=== PATIENT | female | born 1965 ===

== ENCOUNTER 2016-12-09 11:21 | Day surgery (SDC) | payer OTHER ==
[~2016-12-09 11:21] MED LIST: BACITRACIN 50,000 UNITS/10 ML SYR IRR ONE; BUPIVACAINE 0.5% 30 ML SDV ONE; CHLORHEXIDINE GLUC HIBICLENS 118 ML BTL TP ONE; DEXAMETHASONE 4 MG/ML VIAL ONE; LIDOCAINE 2% 5 ML SDV ONE; ROPIVACAINE HCL 20 MG/10 ML INJ EP ONE; ceFAZolin 2 GM/DEXTROSE 100 ML IV ONE
[2016-12-09] MEDS ORDERED: CEFAZOLIN 2 GM/DEXTROSE/100 ML BAG IV ONE (12:09)
[2016-12-09] MEDS ORDERED: LIDOCAINE 1% 5 ML SDV ONE (12:20)
[2016-12-09] MEDS ORDERED: fentaNYL 100 MCG/2 ML INJ ONE ×2 (13:07→15:33)
[2016-12-09] MEDS ORDERED: MIDAZOLAM 2 MG/2 ML VIAL ONE ×2 (13:08→14:00)
[2016-12-09] MEDS ORDERED: PROPOFOL/EMULSION 500 MG/50 ML BOTTLE IV ONE ×2 (13:08→14:38)
[2016-12-09] MEDS ORDERED: ONDANSETRON 4 MG/2 ML VIAL ONE ×2 (13:10→18:29)
[2016-12-09] MEDS ORDERED: LIDOCAINE 2% 5 ML SDV ONE ×2 (13:42→13:50)
[2016-12-09] MEDS ORDERED: BUPIVACAINE/EPI 0.25% 30 ML SDV ONE (13:42)
[2016-12-09] MEDS ORDERED: ROPIVACAINE HCL 20 MG/10 ML INJ EP ONE (13:42)
[2016-12-09] MEDS ORDERED: BUPIVACAINE 0.25% 30 ML SDV ONE ×2 (13:46→18:10)
[2016-12-09] MEDS ORDERED: ROPIVACAINE HCL 150 MG/30 ML INJ ONE (13:50)
[2016-12-09] MEDS ORDERED: LIDOCAINE 1% 30 ML SDV ONE (18:09)
[2016-12-09] MEDS ORDERED: PROMETHAZINE HCL 25 MG/ML INJ ONE ×2 (18:10→19:34)
[2016-12-09] MEDS ORDERED: HYDROmorphONE/DILAUDID 1 MG/ML SYR ONE (18:10)
[2016-12-09] MEDS ORDERED: ONDANSETRON 4 MG/2 ML VIAL IVP PRN (18:24)
[2016-12-09] MEDS ORDERED: PROMETHAZINE HCL 25 MG/ML INJ IVP PRN (18:25)
[2016-12-09] MEDS ORDERED: CEFAZOLIN 1 GM/DEXTROSE/50 ML BAG IV ONE (18:42)
[2016-12-09] MEDS ORDERED: HYDROCODONE/APAP 5/325 TAB ONE (18:50)
[2016-12-09] MEDS ORDERED: SCOPOLAMINE HYDROBROMIDE 1.5 MG PATCH TD ONE ×2 (19:18→19:30)
--- NOTE | 2016-12-10 13:47 | GOP ---
[f rep st] OPERATIVE REPORT DATE OF OPERATION: 12/09/2016 SURGEON: Klaudia Carrasco DPM PATIENT MONITOR: Selina Carrasco DPM. ANESTHESIA: Light general MAC. ANESTHESIOLOGIST: Wilmer Lee MD PREOPERATIVE DIAGNOSIS: Bunion, hallux abductovalgus, metatarsus primus varus, left foot. POSTOPERATIVE DIAGNOSIS: Bunion, hallux abductovalgus, metatarsus primus varus , left foot. PROCEDURES PERFORMED: 1. Silver bunionectomy, left foot. 2. Fusion 1st metatarsal cuneiform joint, left foot. 3. Use of Jessica bone graft. FINDINGS: INDICATIONS: Advanced bunion hallux abductovalgus deformity. Deformity present for years, progressively getting worse. Shoe gear and activity limitations. At this time, the patient elects to proceed with surgery on the left foot. DESCRIPTION OF PROCEDURE: The patient was brought into the operating room and placed on the operating table in prone position for administration of a popliteal nerve block performed by Dr. Lee. Once completed, the patient was placed in supine position. The lower extremity was prepped and draped in usual sterile manner. Light general/monitored anesthesia administered. The lower extremity was prepped and draped in the usual sterile manner after the limb had been elevated and exsanguinated with an Esmarch bandage. An ankle tourniquet was inflated to 225 mmHg, and the procedure was begun. Webril padding utilized under the ankle cuff. #1 silver bunionectomy. Attention was directed toward the dorsal medial aspect of the 1st metatarsophalangeal joint, where a linear incision was created. Incision was carefully deepened, with care of neurovascular structures and clamp and cauterize bleeders. Linear capsulotomy performed, exposing the hypertrophied medial bony eminence, which was resected. Utilizing the McGlamry elevator, plantar lateral adhesions were released. Attention was directed toward the more proximal aspect of the incision, which was lengthened to the 1st metatarsal cuneiform joint. Incision was carefully deepened with care of neurovascular structures and clamp and cauterize bleeders. Incision deepened through the periosteum to the 1st metatarsal base cuneiform joint, which was then exposed. Using Blackstone systems for retraction, I was able to view the cartilage, which was then resected with a sagittal saw, minimizing removal of bone on the base of the 1st metatarsal, and a wedge of bone was taken from the lateral cuneiform side. Once it appeared all cartilage had been resected, the wound was copiously irrigated with bacitracin irrigation solution. The wound was prepped with paragon drill bit, and a Blackstone microfracture pik device for subchondral bone bleeding. Jessica bone graft placed within the joint. Then, utilizing the C-arm and K-wires for manipulation of the metatarsal as well then for positioning, the 1st metatarsal was reduced in the transverse and sagittal plane into the appropriate position. C-arm pictures taken to verify alignment and positioning. Once achieved, and correct positioning noted, powered rotating bur was utilized in the proximal one-third of the 1st metatarsal for placement of a compression screw. Then, a 4.0 x 44 mm headed Blackstone compression screw was placed across the fusion site extending to the medial plantar cuneiform. Site was noted to be stable and congruent. Then, a second point of fixation was achieved with another 4.0 x 32 mm headed compression screw measuring 28 mm in length, extending from medial plantar first metatarsal through the cuneiform. Then, a third point of fixation was achieved with a headless 3.5 x 26 mm Blackstone screw from proximal dorsal cuneiform to plantar distal first metatarsal. Once adequate stability achieved , the wound was copiously irrigated with bacitracin irrigation solution. Dorsal medial aspect of the fusion site a shallow hole was drilled with an egg- shaped bur, and those sites packed with additional Jessica bone graft to enhance fusion. Capsular closure achieved with 2-0 and 3-0 Vicryl. The subcutaneous tissue closed with 4-0 Monocryl. Note the tourniquet was released after about 100 minutes and a normal hyperemic response was noted. There was bleeding of a proximal vein which was then tied off and controlled. There was then also some bleeding in the distal vein, which was tied off and cauterized as well. Bleeding was controlled at the time of closure. The skin was closed with 4-0 Prolene in a horizontal interrupted suture manner. Dressings included Xeroform , 4 x 4's, reinforced with Gini, Kerlix, and an Garry bandage. The patient tolerated the procedure and anesthesia well and left the operating room with vital signs stable and vascular status intact to all digits. PATHOLOGY: No specimen sent. INJECTABLES: Prior to beginning the procedure, despite having a popliteal nerve block, I had performed a saphenous nerve block. However, since it appeared that she was still not fully numb, I had also added posterior tibial nerve and peripheral nerve block to ensure anesthesia. A total of 12 cc of the 1:1 mix of 0.2% ropivacaine and 1% lidocaine plain utilized. Then, at the time of the procedure, there was still some movement of her foot, suggesting she was in discomfort, and so an additional 10 cc of 0.5% Marcaine plain had also been injected. POSTOPERATIVE RECOVERY: The nurse reported her pain being at a level of 6/10, and therefore, I enhanced the ankle and peripheral nerve block in postoperative recovery with an additional 10 cc of 0.25% Marcaine plain. ESTIMATED BLOOD LOSS: Less than 10 cc. In postoperative recovery, the patient was doing well. Her boyfriend, Ankit, will be providing her transportation home. She was fitted with a Cryo/Cuff. She is to be nonweightbearing. Her first postoperative visit will be in 2 days for wound check. Prognosis good. /[id number]/MODL MTDD
== END 2016-12-09 21:25 | disposition home or self-care (01) ==
LOC: FSGY 11:21
PROVIDERS: ATTEND Podiatrist
PROC: 0QBP0ZZ Excision of Left Metatarsal, Open Approach (ICD-10-PCS; principal; 2016-12-09 13:00)
PROC: 0MQT0ZZ Repair Left Foot Bursa and Ligament, Open Approach (ICD-10-PCS; principal; 2016-12-09 13:00)
PROC: 0SGL0JZ Fusion of Left Tarsometatarsal Joint with Synthetic Substitute, Open Approach (ICD-10-PCS; principal; 2016-12-09 13:00)
DX: Q66.22 Congenital metatarsus adductus (principal); I10 Essential (primary) hypertension
CPT/HCPCS: C1713; C1762; C1769; J0690; J1100; J1170; J2250; J2405; J2550; J2704; J2795; J3010

== ENCOUNTER 2017-05-20 10:34 | Day surgery (SDC) | payer OTHER ==
[2017-05-20] MEDS ORDERED: LR 1,000 ML IV ONE (11:10)
[2017-05-20] MEDS ORDERED: LIDOCAINE 1% 2 ML INJ ID PRN (11:10)
[2017-05-20] MEDS ORDERED: MIDAZOLAM 2 MG/2 ML VIAL IVP ONE (11:42)
[2017-05-20] MEDS ORDERED: MIDAZOLAM 2 MG/2 ML VIAL ONE (11:42)
[2017-05-20] MEDS ORDERED: fentaNYL 100 MCG/2 ML INJ ONE ×2 (11:42→12:09)
--- NOTE | 2017-05-20 11:42 | PDANEPAE ---
ANE History of Present Illness R bunionectomy ANE Past Medical History - Cardiovascular History Hx Hypertension: Yes Hx Arrhythmias: No Hx Chest Pain: No Hx Coronary Artery / Peripheral Vascular Disease: No Hx CHF / Valvular Disease: No Hx Palpitations: No - Pulmonary History Hx COPD: No Hx Asthma/Reactive Airway Disease: No Hx Recent Upper Respiratory Infection: No Hx Sleep Apnea: No Sleep Apnea Screening Result - Last Documented: Negative - Neurologic History Hx Cerebrovascular Accident: No Hx Seizures: No Hx Dementia: No - Endocrine History Hx Diabetes: No - Renal History Hx Renal Disorders: No - Liver History Hx Hepatic Disorders: No - Neurological & Psychiatric Hx Hx Neurological and Psychiatric Disorders: Yes Neurological / Psychiatric History Comment: ADD - Cancer History Hx Cancer: No - Congenital Disorder History Hx Congenital Disorders: No - GI History Hx Gastrointestinal Disorders: No - Other Health History Other Health History: NEG - Chronic Pain History Chronic Pain: Yes (ALEX FOOT) - Surgical History Prior Surgeries: L FOOT SURGERY. CERVICAL CRYO. ALEX KNEE LATERAL RELEASE ANE Review of Systems Review of systems is: negative - Exercise capacity Exercise capacity: >=4 METS METS (RN): 5 METS ANE Patient History - Allergies Allergies/Adverse Reactions: codeine Allergy (Verified 11/21/16 14:07) iodine Allergy (Verified 11/21/16 14:05) morphine Allergy (Verified 11/21/16 14:07) - Home Medications Home medications: home medication list seen and reviewed Home Medications: Herbal Drugs 11/21/16 [Last Taken 04/22/17] IBUPROFEN 11/21/16 [Last Taken 05/06/17] Lisinopril 11/21/16 [Last Taken 05/20/17 06:00] Ritalin 10mg (*) 11/21/16 [Last Taken 05/13/17] Voltaren 11/21/16 [Last Taken 12/08/16] - NPO status NPO Since - Liquids (Date): 05/19/17 NPO Since - Liquids (Time): 08:30 NPO Since - Solids (Date): 05/19/17 NPO Since - Solids (Time): 20:00 - Anes Hx Anes Hx: post operative nausea, post operative nausea and vomiting - Smoking Hx Smoking Status: Never smoked - Alcohol Use Alcohol Use: Other - Family Anes Hx Family Anes Hx: none Family Hx Anesthesia Complications: NEG ANE Labs/Vital Signs - Vital Signs Blood Pressure: 103/77 Heart Rate: 70 Respiratory Rate: 18 O2 Sat (%): 93 Height: 165.1 cm Weight: 81.647 kg ANE Physical Exam - Airway Neck exam: FROM Mallampati Score: Class 1 Mouth exam: normal dental/mouth exam - Pulmonary Pulmonary: no respiratory distress - Cardiovascular Cardiovascular: regular rate and rhythym - ASA Status ASA Status: II ANE Anesthesia Plan Anesthesia Plan: GA w LMA Regional Anesthesia: popliteal SNB
[2017-05-20] MEDS ORDERED: fentaNYL 100 MCG/2 ML INJ IVP ONE (11:43)
[2017-05-20] MEDS ORDERED: LIDOCAINE 2% 5 ML SDV ONE ×2 (11:44→12:13)
[2017-05-20] MEDS ORDERED: BACITRACIN 50,000 UNITS/10 ML SYR IRR ONE (11:44)
[2017-05-20] MEDS ORDERED: DEXAMETHASONE 4 MG/ML VIAL ONE ×2 (11:44→12:09)
[2017-05-20] MEDS ORDERED: ROPIVACAINE HCL 20 MG/10 ML INJ EP ONE (11:44)
[2017-05-20] MEDS ORDERED: BUPIVACAINE/EPI 0.25% 30 ML SDV ONE (11:44)
[2017-05-20] MEDS ORDERED: BUPIVACAINE 0.5% 30 ML SDV ONE (11:44)
[2017-05-20] MEDS ORDERED: ROPIVACAINE HCL 150 MG/30 ML INJ ONE (11:45)
--- NOTE | 2017-05-20 11:55 | PDHPUP ---
History & Physical Update H&P update statement: This history and physical update is based on an assessment of the patient which was completed after admission or registration (within 24 hours), but prior to the surgery/procedure. H&P changes: Heart: NRR. Lungs :Clear. lab work update: Calcium , serum 9.8. Vit D 30.2
[2017-05-20] MEDS ORDERED: ceFAZolin 2 GM/DEXTROSE 100 ML IV ONE (12:00)
[2017-05-20] MEDS ORDERED: ONDANSETRON 4 MG/2 ML VIAL ONE (12:09)
[2017-05-20] MEDS ORDERED: PROPOFOL 200 MG/20 ML VIAL ONE ×6 (12:09→15:35)
[2017-05-20] MEDS ORDERED: LIDOCAINE 1% 300 MG/30 ML SDV ONE (12:44)
[2017-05-20] MEDS ORDERED: PHENYLEPHRINE HCL 100 MCG/ML SYR ONE (13:12)
[2017-05-20] MEDS ORDERED: ceFAZolin 1 GM VIAL ONE (15:11)
[2017-05-20] MEDS ORDERED: HYDROmorphONE/DILAUDID 1 MG/ML SYR IVP PRN (17:26)
[2017-05-20] MEDS ORDERED: DEXAMETHASONE 4 MG/ML VIAL IVP PRN (17:26)
[2017-05-20] MEDS ORDERED: HYDROCODONE/APAP 5/325 TAB PO PRN (17:26)
[2017-05-20] MEDS ORDERED: ACETAMINOPHEN 500 MG TAB PO PRN (17:26)
[2017-05-20] MEDS ORDERED: MEPERIDINE 25 MG/ML SYR IVP PRN (17:26)
[2017-05-20] MEDS ORDERED: OXYCODONE/APAP 5/325 TAB PO PRN (17:26)
[2017-05-20] MEDS ORDERED: fentaNYL 100 MCG/2 ML INJ IVP PRN (17:26)
[2017-05-20] MEDS ORDERED: PROMETHAZINE HCL 25 MG/ML INJ IVP PRN (17:26)
[2017-05-20] MEDS ORDERED: ONDANSETRON 4 MG/2 ML VIAL IVP PRN (17:26)
[2017-05-20] MEDS ORDERED: NALOXONE HCL 0.4 MG/ML INJ IVP PRN (17:26)
--- NOTE | 2017-05-20 17:28 | POSTANESTH ---
Post Anesthetic Evaluation Cardiovascular Status: Normal, Stable, Similar to Pre-Op Cond Respiratory Status: Normal, Stable, Similar to Pre-op Cond. Level of Consciousness/Mental Status: Can Participate in Eval, Mildly Sleepy, Arousable Pain Control: Adequate, Prn Tx Ordered Nausea/Vomiting Control: Adequate, Prn Tx Ordered Complications Possibly Related to Anesthesia: None Noted (doing well)
--- NOTE | 2017-05-20 17:32 | POSTOPPROG ---
Post Op Note Date of Operation: 05/20/17 Surgeon: Klaudia Crarasco Guitar Maker Hand: shruti Carrasco DPM Anesthesiologist: Anesthesia: GET(General Endotracheal) Pre-op Diagnosis: bunion, hallux valgus, metatarsus primus varus Post-op Diagnosis: bunion, hallux valgus, metatarsus primus varus Indication: pain, large deformity Procedure: Midfoot fusion with platescrew fixation, distal osteotomy first metatarsal Findings: large deformity Inf/Abcess present in the surg proc area at time of surgery?: No Depth: Deep Incisional (Fascial) EBL: Minimal Complications: None. Drains: Other (silastic drain)
[2017-05-20 18:22] VITALS: TEMP 98.1
[2017-05-20 18:23] VITALS: BP 103/68; PULSE 76; RESP 95; O2SAT 95
--- NOTE | 2017-05-21 06:02 | GOP ---
[f rep st] OPERATIVE REPORT DATE OF OPERATION: 05/20/2017 SURGEON: Klaudia Carrasco DPM LINE RIDER: Selina Carrasco DPM. ANESTHESIA: General. ANESTHESIOLOGIST: Gaurav David PREOPERATIVE DIAGNOSIS: Advanced bunion hallux valgus deformity metatarsus primus varus right foot. POSTOPERATIVE DIAGNOSIS: Advanced bunion hallux valgus deformity metatarsus primus varus right foot. PROCEDURE PERFORMED: 1. 1st metatarsal cuneiform joint fusion, with plate and screw fixation, right foot utilizing Jessica graft. 2. Distal 1st metatarsal osteotomy, with screw fixation, right foot. FINDINGS: Advanced rigid bunion deformity. INDICATIONS: Patient pleased with outcome of left foot bunion surgery. At this time having significant pain on the right foot, at this time elects to proceed with surgery. DESCRIPTION OF PROCEDURE: In preoperative holding a popliteal nerve block was administered by the anesthesiologist. The patient was brought into the operating room and placed on the operating table in the supine position. A saphenous nerve block was performed utilizing a 1:1 :1 mix of 0.25% Marcaine plain with epinephrine, 0.5% Marcaine plain, and 1% lidocaine plain, a total of 15 cc. The lower extremity was prepped and draped in usual sterile manner. After the limb had been elevated, it was exsanguinated with an Esmarch bandage. Ankle tourniquet was inflated to 220 mmHg, and the procedure was begun. Webril padding utilized under the ankle cuff. Attention was directed towards the 1st metatarsophalangeal joint, where incision was created and extended proximally to the 1st metatarsal base cuneiform joint. Incision carefully deepened, with care of neurovascular structures, and clamp and cauterize bleeders. Note the incision created more proximally extending along the medial plantar aspect of the 1st metatarsal base cuneiform joint. Attention directed towards the more distal aspect of the 1st metatarsal, where a linear capsulotomy was performed exposing the hypertrophied medial eminence which was resected with a sagittal saw. McGlamry elevator was utilized to release any plantar lateral adhesions. FUSION FIRST METATARSAL-CUNEIFORM JOINT: Attention was directed towards the more proximal aspect of the incision. The incision was carefully deepened and incised through the periosteum above the level of the neurovascular structures and above the abductor hallucis muscle belly. The joint was exposed. Utilizing a sagittal saw, a cartilage was resected, removing a wedge of bone from the cuneiform side. Hinnmin retractors were utilized during the procedure for optimal visualization of the joint. Then utilizing a Sanchez elevator, cartilage was resected off the base of the 1st metatarsal. Site was curetted as well. Then utilizing osteotome and mallet, sites were fish-scaled, and microfractured was to promote bone bleeding in prep for fusion. Note, prior to performing the fish scaling and joint prepping, the wounds had been copiously irrigated with bacitracin irrigation solution. Jessica bone graft was placed within the joint, and then K-wire was driven through the 1st metatarsal head, and the 1st metatarsal manipulated in an effort to improve alignment and positioning in the saggital and transverse plane , manipulating met into varus position. Temporary fixation achieved with K-wires , and 2 stab incisions were created dorsal aspect of the foot for this temporary fixation. The standard Arthrex lapidus plantar plate was fitted but did not contour well to plantar joint, both the larger and the smaller sizes. Since they did not contour, there was concern they could open up the intermetatarsal angle which already was a challenge to reduce. There was significant gapping and so various other plates were positioned. It was decided to proceed with a smaller T-plate fit best on the plantar medial aspect of the joint. . However, prior to proceeding with plantar plate fixation, a compression screw was placed medial distal to proximal lateral, first a 4.0 screw which did not appear to achieve much stabililty and so replaced with a 5.0 , 32 mm headless screw. It was felt that additional compression was needed, and so a second point of fixation was achieved with a 4 mm 36 mm headless screw , and reduction of the intermetatarsal angle was noted. Then the plantar plate was applied, a 3-hole T-locking plate secured with 2 proximal locking screws, both 3 mm, a 20 mm and 24 mm length and two distal locking screws two 16 mm. C -arm pictures were taken throughout the procedure to verify alignment and positioning. With loading of the forefoot, however, there was still some deviation of the 1st metatarsal, and it was decided that a distal osteotomy was warranted to improve hallux alignment. At the time of realigning first metatarsal initially care was taken not to overl resect bone as to cause mores shortening of first met as first met was already short to begin with. DISTAL FIRST METATARSAL OSTEOTOMY: Utilizing a sagittal saw, a V-type osteotomy was created to the distal 1st metatarsal head. K-wire was utilized as an axis guide. Capital fragment shifted over laterally by approximately 4 mm, and fixated with a K-wire, and then fixated with a 2.5, 14 mm headless screw. At this time with loading of the forefoot, satisfactory alignment and correction was obtained of the deformity. Note, application of the plantar plate technique took much longer than expected. Tourniquet intraoperatively had been released, and a normal hyperemic response was noted. Tourniquet was left down for approximately 30-40 minute time period, and since there was oozing and bleeding, and visualization was more challenging, it was decided to reinflate the tourniquet, and the tourniquet intraoperative was then reinflated for another 60 minutes, and then tourniquet was released prior to final closure to ensure no active bleeders. When tourniquet was released, a normal hyperemic response was noted and no active bleeders. Deep closure obtained with 3-0 and 2-0 Vicryl closing periosteum and capsule. Subcutaneous closure achieved with 4-0 Monocryl, and the skin was closed with 4-0 Prolene in horizontal and interrupted suture manner. Dressings included Xeroform, 4 x 4s, fluff, Gini, reinforced with tape , and Kerlix and Garry bandage. An additional 10 cc of 1% lidocaine plain mixed with 0.5% Marcaine plain was injected to enhance postoperative anesthesia to the saphenous nerve. The popliteal nerve block should remain in place for at least 24 hours for pain control. The patient tolerated the procedure and anesthesia well, and left the operating room with vital signs stable and vascular status intact to all digits. Her boyfriend Ankit will be providing her transportation home. She is to follow up at our office in 2 days for wound check. Prognosis good. /[id number]/MODL MTDD
== END 2017-05-20 19:15 | disposition home or self-care (01) ==
LOC: FSGY 10:34
PROVIDERS: ATTEND Podiatrist
PROC: 0SGM0KZ Fusion of Right Metatarsal-Phalangeal Joint with Nonautologous Tissue Substitute, Open Approach (ICD-10-PCS; principal; 2017-05-20 12:00)
PROC: 0QQN0ZZ Repair Right Metatarsal, Open Approach (ICD-10-PCS; principal; 2017-05-20 12:00)
DX: M20.11 Hallux valgus (acquired), right foot (principal); M21.611 Bunion of right foot
CPT/HCPCS: C1713; C1762; C1769; J0690; J1100; J2250; J2370; J2405; J2704; J2795; J3010